=== PATIENT | female | born 1975 | race Two or more races ===

== ENCOUNTER 2022-06-16 20:39 | Inpatient (IN) | payer OTHER ==
[~2022-06-16] VITALS: Ht 160 cm; Wt 76.2 kg
[2022-06-16 22:30] LABS: Eosinophils # (auto) 0.2 10 ^3/uL (0-0.8); Mean Corpuscular Hemoglobin 13.7 pg (28.0-32.0); Mean Corpuscular Hgb Conc. 27.2 g/dL (32.0-36.0)
[2022-06-16 22:40] LABS: Basophils # (auto) 0 10 ^3/uL (0-0.2); Basophils % (auto) 0.4 % (0.0-2.0); Eosinophils % (auto) 2.1 % (0.0-7.0); Hematocrit 26.2 % (36.0-46.0); Hemoglobin 7.1 g/dL (12.2-16.2); Lymphocytes # (auto) 3.4 10 ^3/uL (0.4-5.4); Lymphocytes % (auto) 33.3 % (10.0-50.0); Mean Corpuscular Volume 50.3 fL (80.0-100.0); Monocytes # (auto) 0.6 10 ^3/uL (0-1.3); Monocytes % (auto) 6.3 % (0.0-12.0); Neutrophils # (auto) 5.9 10 ^3/uL (1.6-8.6); Neutrophils % (auto) 57.9 % (37.0-80.0); Red Cell Distribution Width 20.7 % (11.8-14.3); White Blood Cell 10.3 10^3/uL (4.4-10.8)
[2022-06-16 22:43] LABS: Albumin 3.5 g/dL (3.4-5.0); BUN/Creatinine Ratio 18.6; Calcium 8.9 mg/dL (8.5-10.1); Potassium 3.4 mmol/L (3.5-5.1)
[2022-06-16 22:46] LABS: Bilirubin, Total 0.3 mg/dL (0.2-1.0)
[2022-06-16] MEDS ORDERED: amLODIPine BESYLATE 5 MG TAB PO ONE (23:00)
[2022-06-16] MEDS ORDERED: POTASSIUM CHL 20 Meq TABLET PO ONE (23:30)
[2022-06-16] MEDS: MORPHINE SULFATE 4 MG/ML SYR/VIAL IV ONE (23:45)
[2022-06-16] MEDS: ONDANSETRON HCL 4 MG/2 ML VIAL IV ONE (23:45)
[2022-06-17] VITALS (8 sets, daily range): BP systolic 144–193; BP diastolic 81–98
[2022-06-17 01:07] LABS: Basophils # (auto) 0 10 ^3/uL (0-0.2); Eosinophils # (auto) 0.2 10 ^3/uL (0-0.8); Hematocrit 24.8 % (36.0-46.0); Monocytes # (auto) 0.8 10 ^3/uL (0-1.3); Monocytes % (auto) 7.5 % (0.0-12.0); Nucleated Red Blood Cells % 0.1 %; White Blood Cell 10.2 10^3/uL (4.4-10.8)
[2022-06-17 01:08] LABS: Basophils % (auto) 0.5 % (0.0-2.0); Eosinophils % (auto) 1.7 % (0.0-7.0); Hemoglobin 7.2 g/dL (12.2-16.2); Lymphocytes # (auto) 2.7 10 ^3/uL (0.4-5.4); Lymphocytes % (auto) 26.8 % (10.0-50.0); Mean Corpuscular Hemoglobin 14.7 pg (28.0-32.0); Mean Corpuscular Hgb Conc. 28.8 g/dL (32.0-36.0); Mean Corpuscular Volume 51.1 fL (80.0-100.0); Neutrophils # (auto) 6.5 10 ^3/uL (1.6-8.6); Neutrophils % (auto) 63.5 % (37.0-80.0); Red Blood Cells 4.86 10^6/uL (4.0-5.20)
[2022-06-17 01:09] LABS: Red Cell Distribution Width 20.4 % (11.8-14.3)
[2022-06-17] MEDS ORDERED: LABETALOL HCL 5 MG/ML 4ML SYRINGE IV ONE (03:15)
[2022-06-17] MEDS: ONDANSETRON HCL 4 MG/2 ML VIAL IV ONE (04:33)
[2022-06-17] MEDS: MORPHINE SULFATE 4 MG/ML SYR/VIAL IV ONE (04:33)
[2022-06-17] MEDS ORDERED: ONDANSETRON HCL 4 MG/2 ML VIAL IV PRN (06:15)
[2022-06-17] MEDS ORDERED: TEMAZEPAM 15 MG CAP PO PRN (06:15)
[2022-06-17] MEDS ORDERED: NITROGLYCERIN 0.4 MG SL TAB SL PRN (06:15)
[2022-06-17] MEDS ORDERED: MORPHINE SULFATE INJ 2 MG/ml SYRG IV PRN (06:15)
[2022-06-17] MEDS ORDERED: ACETAMINOPHEN 325 MG TAB PO PRN (06:15)
[2022-06-17 06:58] LABS: % Iron Saturation 2.3 % (15-50)
[2022-06-17 08:25] LABS: Urine Bacteria MANY /hpf (None Seen); Urine Blood Negative /uL (Negative); Urine Hyaline Cast FEW /lpf (0 - 2); Urine Mucus FEW (None Seen); Urine Specific Gravity 1.013 (1.001-1.035); Urine WBC 3 /hpf (0 - 5)
[2022-06-17 09:29] LABS: Hematocrit 26.9 % (36.0-46.0)
[2022-06-17] MEDS: ENOXAPARIN SOD 40 MG/0.4 ML SYRINGE SC SCH (11:32)
[2022-06-17] MEDS: ASPirin 81 mg TAB PO SCH (11:32)
[2022-06-17] MEDS: amLODIPine BESYLATE 5 MG TAB PO SCH (11:33)
[2022-06-17] MEDS: cloNIDine HCL 0.1 MG TAB PO PRN ×2 (11:35→23:01)
[2022-06-18 04:44] VITALS: BP 149/81
[2022-06-18 04:59] LABS: Eosinophils # (auto) 0.2 10 ^3/uL (0-0.8); Mean Corpuscular Volume 53.3 fL (80.0-100.0); Monocytes # (auto) 0.6 10 ^3/uL (0-1.3)
[2022-06-18 05:01] LABS: Basophils # (auto) 0.1 10 ^3/uL (0-0.2); Basophils % (auto) 0.9 % (0.0-2.0); Eosinophils % (auto) 2.4 % (0.0-7.0); Hematocrit 26.6 % (36.0-46.0); Hemoglobin 7.5 g/dL (12.2-16.2); Lymphocytes # (auto) 2.4 10 ^3/uL (0.4-5.4); Lymphocytes % (auto) 35.3 % (10.0-50.0); Mean Corpuscular Hgb Conc. 28.2 g/dL (32.0-36.0); Neutrophils # (auto) 3.7 10 ^3/uL (1.6-8.6); Neutrophils % (auto) 53.4 % (37.0-80.0); White Blood Cell 6.9 10^3/uL (4.4-10.8)
[2022-06-18 05:04] LABS: Red Cell Distribution Width 20.8 % (11.8-14.3)
[2022-06-18 05:20] LABS: BUN/Creatinine Ratio 17.1; Potassium 4.6 mmol/L (3.5-5.1)
[2022-06-18 08:00] VITALS: BP 155/89
[2022-06-18 09:21] VITALS: BP 155/89
[2022-06-18] MEDS ORDERED: AMLO-496 PO (10:00)
[2022-06-18] MEDS: amLODIPine BESYLATE 5 MG TAB PO SCH (10:39)
[2022-06-18] MEDS: ASPirin 81 mg TAB PO SCH (10:39)
[2022-06-18] MEDS: ENOXAPARIN SOD 40 MG/0.4 ML SYRINGE SC SCH (10:39)
[2022-06-18 12:50] VITALS: BP 155/90
[2022-06-18 12:51] VITALS: BP 155/90
== END 2022-06-18 15:12 | disposition home or self-care (01) | DRG 199 ==
LOC: ER 20:44 → TELE 06-17 06:17 → TELE-WESTW 06-17 21:39
PROVIDERS: ADMIT Nurse Practitioner; ATTEND Internal Medicine
PROC: 30233N1 Transfusion of Nonautologous Red Blood Cells into Peripheral Vein, Percutaneous Approach (ICD-10-PCS; principal; 2022-06-17)
DX: I16.1 Hypertensive emergency (principal); N17.9 Acute kidney failure, unspecified; D64.9 Anemia, unspecified; E87.6 Hypokalemia; I10 Essential (primary) hypertension; H53.8 Other visual disturbances; R51.9 Headache, unspecified; R77.8 Other specified abnormalities of plasma proteins; Z20.822 Contact with and (suspected) exposure to COVID-19
CPT/HCPCS: 36415; 70450; 70486; 71045; 80048; 80053; 81001; 83540; 83550; 83690; 83880; 84484; 85014; 85018; 85025; 86850; 86900; 86901; 86920; 87426; 93005; 93306; 96374; G0378; J2405; J3490

== ENCOUNTER → 2022-11-26 | Outpatient (CLI) | payer MEDICAID ==
[~2022-11-26] MED LIST: AMLO1TAB23 PO
[2022-11-26 08:09] LABS: Basophils # (auto) 0.1 10 ^3/uL (0-0.2); Eosinophils # (auto) 0.2 10 ^3/uL (0-0.8); Monocytes # (auto) 0.7 10 ^3/uL (0-1.3)
[2022-11-26 08:11] LABS: Basophils % (auto) 0.9 % (0.0-2.0); Eosinophils % (auto) 2.5 % (0.0-7.0); Hematocrit 35.5 % (36.0-46.0); Lymphocytes # (auto) 3.1 10 ^3/uL (0.4-5.4); Lymphocytes % (auto) 34.1 % (10.0-50.0); Mean Corpuscular Hemoglobin 19.7 pg (28.0-32.0); Mean Corpuscular Volume 63.5 fL (80.0-100.0); Neutrophils # (auto) 4.9 10 ^3/uL (1.6-8.6); Neutrophils % (auto) 54.5 % (37.0-80.0); Nucleated Red Blood Cells % 0.1 %; Red Blood Cells 5.59 10^6/uL (4.0-5.20)
[2022-11-26 08:18] LABS: Red Cell Distribution Width 21.6 % (11.8-14.3)
[2022-11-26 08:28] LABS: Urine Bacteria MOD /hpf (None Seen); Urine Blood Negative /uL (Negative); Urine Mucus FEW (None Seen); Urine Specific Gravity 1.014 (1.001-1.035); Urine WBC 1 /hpf (0 - 5)
[2022-11-26 08:53] LABS: % Iron Saturation 5.6 % (15-50)
[2022-11-26 08:54] LABS: Albumin 3.3 g/dL (3.4-5.0); Calcium 9.2 mg/dL (8.5-10.1); Potassium 3.8 mmol/L (3.5-5.1)
[2022-11-26 09:02] LABS: BUN/Creatinine Ratio 17.1 (10.0-20.0); Bilirubin, Total 0.3 mg/dL (0.2-1.0); Total Protein 8.1 g/dL (6.4-8.2)
== END | disposition home or self-care (01) ==
LOC: LAB 07:50
PROVIDERS: ATTEND Nurse Practitioner Family
DX: Z00.01 Encounter for general adult medical examination with abnormal findings (principal); I10 Essential (primary) hypertension; R73.9 Hyperglycemia, unspecified; D50.9 Iron deficiency anemia, unspecified
CPT/HCPCS: 36415; 80053; 80061; 81001; 82043; 82306; 83036; 83540; 83550; 84439; 84443; 85025

== ENCOUNTER 2023-05-31 17:50 | Emergency (ER) | payer MEDICAID ==
[~2023-05-31] VITALS: Ht 160 cm; Wt 78.0 kg
[2023-05-31 19:52] LABS: Basophils # (auto) 0 10 ^3/uL (0-0.2); Basophils % (auto) 0.4 % (0.0-2.0); Eosinophils # (auto) 0.2 10 ^3/uL (0-0.8); Eosinophils % (auto) 2.4 % (0.0-7.0); Hemoglobin 9.5 g/dL (12.2-16.2); Lymphocytes # (auto) 3.6 10 ^3/uL (0.4-5.4); Lymphocytes % (auto) 34.7 % (10.0-50.0); Mean Corpuscular Hemoglobin 18.6 pg (28.0-32.0); Mean Corpuscular Hgb Conc. 30.5 g/dL (32.0-36.0); Mean Corpuscular Volume 61.1 fL (80.0-100.0); Monocytes # (auto) 0.8 10 ^3/uL (0-1.3); Monocytes % (auto) 7.3 % (0.0-12.0); Neutrophils # (auto) 5.8 10 ^3/uL (1.6-8.6); Neutrophils % (auto) 55.2 % (37.0-80.0); Red Blood Cells 5.07 10^6/uL (4.0-5.20); Red Cell Distribution Width 18.4 % (11.8-14.3); White Blood Cell 10.5 10^3/uL (4.4-10.8)
[2023-05-31 20:19] LABS: Alanine Aminotransferase 18 U/L (7-40); Albumin 4.4 g/dL (3.2-4.8); Alkaline Phosphatase 73 U/L (46-116); Anion Gap 8 (5-15); Aspartate Aminotransferase 20 U/L (13-40); BUN/Creatinine Ratio 11.3 (10.0-20.0); Blood Urea Nitrogen 13 mg/dL (9-23); Calcium 9.4 mg/dL (8.5-10.1); Carbon Dioxide 21 mmol/L (20-30); Chloride 110 mmol/L (98-107); Glucose 129 mg/dL (74-106); Potassium 3.7 mmol/L (3.5-5.1); Sodium 139 mmol/L (136-145)
[2023-05-31 20:20] LABS: Bilirubin, Total 0.2 mg/dL (0.2-1.0); Total Protein 7.7 g/dL (5.7-8.2)
[2023-05-31 22:07] LABS: Urine Bacteria MANY /hpf (None Seen); Urine Blood Negative /uL (Negative); Urine Clarity HAZY (Clear); Urine Color Colorless (Yellow); Urine Hyaline Cast FEW /lpf (0 - 2); Urine Protein, UAD 2+ (Negative); Urine Specific Gravity 1.016 (1.001-1.035); Urine Urobilinogen Normal (Negative); Urine WBC 3 /hpf (0 - 5)
[2023-06-01] MEDS ORDERED: MECLIZINE HCL 25 MG TAB PO ONE (01:15)
[2023-06-01] MEDS ORDERED: IBUPROFEN 600 MG TAB PO ONE (01:15)
[2023-06-01] MEDS ORDERED: ONDANSETRON ODT 4 MG TAB PO ONE (01:15)
[2023-06-01] MEDS ORDERED: ZOFR4T PO (01:28)
[2023-06-01] MEDS ORDERED: FER325T PO (01:28)
[2023-06-01] MEDS ORDERED: MECL25CH85 PO (01:28)
[2023-06-01 02:34] VITALS: BP 163/92; PULSE 85; RESP 16; O2SAT 100
== END 2023-06-01 02:36 | disposition home or self-care (01) ==
LOC: ER 17:50
DX: D64.9 Anemia, unspecified (principal); R42 Dizziness and giddiness; R51.9 Headache, unspecified; I10 Essential (primary) hypertension
CPT/HCPCS: 36415; 70450; 80053; 81001; 81025; 82962; 84484; 85025; 93005; 99284; J8597; Q0162

== ENCOUNTER 2024-09-04 15:47 | Emergency (ER) | payer MEDICAID ==
[~2024-09-04] VITALS: Ht 160 cm; Wt 72.7 kg
[~2024-09-04 15:47] MED LIST changes: +MECL25CH85 PO; +ZOFR4T PO
--- NOTE | 2024-09-04 16:20 | ED.PDOC ---
History of Present Illness HPI Comments 49 year old female presents to the ED via EMS with a chief complaint of hypertension onset today (09/24/24). Per EMS, patient went to dentist office this morning for procedure, Bp was elevated and was sent home. Patient went to a walk in clinic due to DOUGLAS, BP was elevated, 0.2 mg Clonidine was given at 15:24, and 911 was called. Upon ED arrival, BP was 222/100. Patient states she is currently experiencing shortness of breath, headache, blurred vision and ear ringing. Patient did not take HTN medication today. PMHx HTN. Denies chest pain, nausea, vomiting, diarrhea, abdominal pain, fever, chills. No other symptoms or modifying factors present at this time. Chief Complaint: High Blood Pressure Time Seen by MD: 16:00 Primary Care Provider: NONE Reviewed Notes: Medications, Allergies Allergies: Coded Allergies: NO KNOWN ALLERGIES (Unverified , 06/16/22) Home Meds Active Scripts Ondansetron Odt 4MG Tab (ZOFRAN PO) 4 Mg Tb, 1 TAB PO Q8HPRN PRN, #20 TAB ODT TAB-DISSOLVE IN MOUTH, THEN SWALLOW as needed for nausea vomiting Prov:LOZADABRADLEYALDA Q PI/SENIOR RESEARCH ASSOCIATE 06/01/23 Meclizine HCl (Antivert) 25 Mg Chw, 1 TAB PO Q8HPRN PRN, #20 TAB.CHEW as needed fod dizziness Prov:LOZADA,NORALDA Q PI/SENIOR RESEARCH ASSOCIATE 06/01/23 Amlodipine Besylate (Amlodipine Besylate) 10 Mg Tab, 1 TAB PO DAILY, #30 TAB 5 Refills Prov:MAXI MORIN MD 06/18/22 Information Source: Patient, Emergency Med Personnel Mode of Arrival: EMS Severity: Moderate Timing: Hours Duration: Since onset Prehospital treatment: None Past Medical History PAST MEDICAL HISTORY: HTN Surgical History: Denies all surgeries LEGAL TRANSCRIPTIONIST History: No Pertinent LEGAL TRANSCRIPTIONIST History Family History Family History: Reviewed,noncontributory to illness, No family hx of Cancer, No family hx of DM, No family hx of Heart garrison, No family hx of HTN, No family hx ofKidney garrison, No family hx of Liver garrison, No family hx of Lung garrison, No family hx of Stroke Social History Smoker: Non-Smoker Alcohol: Denies ETOH Use Drugs: Denies Drug Use Lives In: Home Constitutional: denies: chills, diaphoresis, fatigue, fever, malaise, sweats, weakness, others EENTM: reports: blurred vision, ear ringing; denies: double vision, ear bleedi ng, ear discharge, ear drainage, ear pain, eye pain, eye redness, hearing loss, mouth pain, mouth swelling, nasal discharge, nose bleeding, nose congestion, nose pain, photophobia, tearing, throat pain, throat swelling, voice changes, others Respiratory: reports: shortness of breath; denies: cough, hemoptysis, orthopnea, SOB at rest, SOB with excertion, stridor, wheezing, others Cardiovascular: reports: others (hypertension); denies: chest pain, dizzy spells, diaphoresis, Dyspnea on exertion, edema, irregular heart beat, left arm pain, lightheadedness, palpitations, PND, syncope Gastrointestinal: denies: abdomen distended, abdominal pain, blood streaked bowels, constipated, diarrhea, dysphagia, difficulty swallowing, hematemesis, melena, nausea, poor appetite, poor fluid intake, rectal bleeding, rectal pain, vomiting, others Genitourinary: denies: abnormal vagina bleeding, burning, dyspareunia, dysuria, flank pain, frequency, hematuria, incontinence, pain, , vagina discharge, urgency, others Neurological: reports: headache; denies: dizziness, fainting, left sided numbness, left sided weakness, numbness, paresthesia, pre-existing deficit, right sided numbness, right sided weakness, seizure, speech problems, tingling, tremors, weakness, others Musculoskeletal: denies: back pain, gout, joint pain, joint swelling, muscle pain, muscle stiffness, neck pain, others Integumetry: denies: bruises, change in color, change in hair/nails, dryness, laceration, lesions, lumps, rash, wounds, others Allergic/Immunocompromised: denies: Difficulty Healing, Frequent Infections, Hives, Itching, others Hematologic/Lymphatic: denies: anemia, blood clots, easy bleeding, easy bruising, swollen glands, others Endocrine: denies: excessive hunger, excessive sweating, excessive thirst, excessive urination, flushing, intolerance to cold, intolerance to heat, unexplained weight gain, unexplained weight loss, others Psychiatric: denies: anxiety, bipolar disorder, depression, hopeless, panic disorder, schizophrenia, sleepless, suicidal, others All Other Systems: Reviewed and Negative Physical Exam General Appearance: No Apparent Distress, Normal HEENT: Normal ENT Inspection, Pharynx Normal, TMs Normal Neck: Full Range of Motion, Non-Tender, Normal, Normal Inspection Respiratory: Chest Non-Tender, Lungs Clear, No Accessory Muscle Use, No Respiratory Distress, Normal Breath Sounds Cardiovascular: No Edema, No JVD, No Murmur, No Gallop, Normal Peripheral Pulses, Regular Rate/Rhythm Breast Exam: Deferred Gastrointestinal: No Organomegaly, Non Tender, No Pulsatile Mass, Normal Bowel Sounds, Soft Genitalia: Deferred Pelvic: Deferred Rectal: Deferred Extremities: No calf tenderness, Normal capillary refill, Normal inspection, Normal range of motion, Non-tender, No pedal edema Musculoskeletal : Apperance: Normal Neurologic: Alert, racehorse trainer II-XII nml as Tested, No Motor Deficits, Normal Affect, Normal Mood, No Sensory Deficits Cerebellar Function: Normal Reflexes: Normal Skin: Dry, Normal Color, Warm Lymphatic: No Adenopathy Was a procedure done? Was a procedure done?: No Differential Dx Considerations may include: TIA, CVA, hypertensive crisis, uncontrolled blood pressure X-Ray, Labs, Meds, VS Vital Signs Date Time Temp Pulse Resp B/P (MAP) Pulse Ox O2 Delivery O2 Flow Rate FiO2 09/04/24 20:39 60 18 129/72 (91) 98 09/04/24 20:12 62 16 99 Room Air* 0 21 09/04/24 20:12 98.0 62 18 149/71 (97) 98 98.0 09/04/24 17:52 83 09/04/24 17:25 167/86 (113) 09/04/24 17:00 98.2 86 16 174/96 (122) 98 98.2 09/04/24 16:56 Room Air* 0 21 09/04/24 16:33 203/101 09/04/24 16:08 98.2 97 16 212/132 (158) 99 98.2 09/04/24 15:54 75 Lab Test 09/04/24 19:33 09/04/24 17:26 09/04/24 16:38 Range/Units Troponin I High Sensitivity 32 29 28 </=34 ng/L White Blood Count 9.1 4.4-10.8 10^3/uL Red Blood Count 5.02 4.0-5.20 10^6/uL Hemoglobin 11.7 L 12.2-16.2 g/dL Hematocrit 35.8 L 36.0-46.0 % Mean Corpuscular Volume 71.4 L 80.0-100.0 fL Mean Corpuscular Hemoglobin 23.2 L 28.0-32.0 pg Mean Corpuscular Hemoglobin Concent 32.6 32.0-36.0 g/dL Red Cell Distribution Width 16.1 H 11.8-14.3 % Platelet Count 320 140-450 10^3/uL Mean Platelet Volume 7.9 6.9-10.8 fL Neutrophils (%) (Auto) 56.9 37.0-80.0 % Lymphocytes (%) (Auto) 30.5 10.0-50.0 % Monocytes (%) (Auto) 9.8 0.0-12.0 % Eosinophils (%) (Auto) 1.7 0.0-7.0 % Basophils (%) (Auto) 1.1 0.0-2.0 % Neutrophils # (Auto) 5.2 1.6-8.6 10 ^3/uL Lymphocytes # (Auto) 2.8 0.4-5.4 10 ^3/uL Monocytes # (Auto) 0.9 0-1.3 10 ^3/uL Eosinophils # (Auto) 0.2 0-0.8 10 ^3/uL Basophils # (Auto) 0.1 0-0.2 10 ^3/uL Nucleated Red Blood Cells 0.0 % D-Dimer, Quantitative 0.25 0.0-0.49 mg/L FEU Sodium Level 142 136-145 mmol/L Potassium Level 3.6 3.5-5.1 mmol/L Chloride Level 109 H 98-107 mmol/L Carbon Dioxide Level 24 20-31 mmol/L Anion Gap 9 5-15 Blood Urea Nitrogen 19 9-23 mg/dL Creatinine 1.14 H 0.550-1.02 mg/dL Glomerular Filtration Rate Calc 60 >90 mL/min BUN/Creatinine Ratio 16.7 10.0-20.0 Serum Glucose 86 74-106 mg/dL Calcium Level 9.0 8.7-10.4 mg/dL Total Bilirubin 0.2 0.2-1.0 mg/dL Aspartate Amino Transferase (AST) 15 13-40 U/L Alanine Aminotransferase (ALT) 15 7-40 U/L Alkaline Phosphatase 70 46-116 U/L B-Type Natriuretic Peptide 66.66 0-100 pg/mL Total Protein 6.6 5.7-8.2 g/dL Albumin 3.8 3.2-4.8 g/dL Current Medications Medications (Trade) Dose Ordered Sig/[place] Route Start Time Stop Time Status Last Admin Hydralazine HCl (Apresoline Injection) 15 mg ONCE ONCE IV 09/04/24 16:30 09/04/24 16:31 DC 09/04/24 16:33 Ketorolac Tromethamine (Toradol Injection) 30 mg ONCE ONCE IV 09/04/24 17:15 09/04/24 17:16 DC 09/04/24 17:23 Methylprednisolone Sodium Succinate (Solu Medrol) 125 mg ONCE ONCE IV 09/04/24 17:45 09/04/24 17:47 DC 09/04/24 17:51 Sodium Chloride 1,000 ml @ 1,000 mls/hr Q1H ONCE IV 09/04/24 17:45 09/04/24 18:44 DC 09/04/24 17:51 [place] [id number] Ph: [phone] DIAGNOSTIC IMAGING Diagnostic Imaging Report : [id number] Signed PATIENT: MIGUEL HESTER ACCT: [id number] UNIT: [id number] : 1975 LOC: ER ROOM / BED: / AGE / SEX: 49 / F ADM STATUS: REG ER SERVICE 1616 ORDERING PHYSICIAN: REGAN NELSON PROCEDURE(s): CXR1 - CHEST XRAY 1 VIEW REASON: cp ORDER NUMBER(s): [id number], ACCESSION NUMBER(s): [id number] CHEST RADIOGRAPH Indication: cp Technique: Single frontal view of the chest was obtained Comparison: CHEST XRAY 1 VIEW on DOS: 06/16/22, CXR1 on DOS: 06/16/22 FINDINGS: Lines and Tubes: None Lungs: No focal consolidation. Pleura: No effusion. No pneumothorax. Cardiomediastinal contours: Unremarkable Bones: No acute osseous abnormality. IMPRESSION: 1. No acute cardiopulmonary disease. ATED BY: SAM DUNCAN Jr., DO DICTATED DATE/TIME: 09/04/241638 SIGNED BY: SAM DUNCNA Jr., SIGNED DATE/TIME: 09/04/241638 CC: X-Ray, Labs, Meds, VS Comment Imaging: X-rays and CT scans were reviewed and interpreted by this provider, imaging shows no fractures and no pathological disease. Pending radiology revie w. Laboratory: Labs reviewed and interpreted by this provider. No significant abnormalities noted. Patient has prior medical visits reviewed. Med reconciliation performed Vital signs reviewed Time of 1ST Reevaluation: 16:30 Reevaluation 1ST: Unchanged (After hydralazine and injection, patient was started having rhinitis and shortness a breath. Patient was given Solu-Medrol 125 which had good alleviating effect of the shortness a breath.) Patient Education/Counseling: Diagnosis, Treatment, Prognosis, Need For Follow Up (Continue taking blood pressure medications as prescribed. Follow up with the PCP tomorrow.) Family Education/Counseling: No Family Present Departure 1 Departure Time of Disposition: 20:55 Impression: Primary Impression: Hypertensive emergency Additional Impression: Headache Qualified Codes: G44.209 - Tension-type headache, unspecified, not intractable Disposition: 01 HOME / SELF CARE / HOMELESS Condition: Fair Discharged With: Self, Spouse Critical Care Note Critical Care Time?: No Stability Stability form required: No Heart Score Heart Score: Heart Score Response (Comments) Value History N/A 0 EKG N/A 0 Age N/A 0 Risk Factors N/A 0 Troponin N/A 0 Total 0 I personally scribed for REGAN NELSON SHARPLES MACHINE OPERATOR ([email or web address]) on 09/04/24 at 16:20. Electronically submitted by Funmilayo Hebert ([email or web address]). I personally scribed for REGAN NELSON SHARPLES MACHINE OPERATOR ([email or web address]) on 09/04/24 at 16:26. Electronically submitted by Funmilayo Hebert ([email or web address]). I personally scribed for REGAN NELSON SHARPLES MACHINE OPERATOR ([email or web address]) on 09/04/24 at 16:44. Electronically submitted by Funmilayo Hebert ([email or web address]). REGAN NELSON [facility] September 04, 2024 16:20
[2024-09-04] MEDS: hydrALAZINE HCL 20 MG/ML VL IV ONE (16:33)
--- NOTE | 2024-09-04 16:41 | DVH ---
CHEST RADIOGRAPH Indication: cp Technique: Single frontal view of the chest was obtained Comparison: CHEST XRAY 1 VIEW on DOS: 06/16/22, CXR1 on DOS: 06/16/22 FINDINGS: Lines and Tubes: None Lungs: No focal consolidation. Pleura: No effusion. No pneumothorax. Cardiomediastinal contours: Unremarkable Bones: No acute osseous abnormality. IMPRESSION: 1. No acute cardiopulmonary disease.
[2024-09-04 16:51] LABS: Basophils # (auto) 0.1 10 ^3/uL (0-0.2); Basophils % (auto) 1.1 % (0.0-2.0); Eosinophils # (auto) 0.2 10 ^3/uL (0-0.8); Eosinophils % (auto) 1.7 % (0.0-7.0); Hematocrit 35.8 % (36.0-46.0); Hemoglobin 11.7 g/dL (12.2-16.2); Lymphocytes # (auto) 2.8 10 ^3/uL (0.4-5.4); Lymphocytes % (auto) 30.5 % (10.0-50.0); Mean Corpuscular Hemoglobin 23.2 pg (28.0-32.0); Mean Corpuscular Hgb Conc. 32.6 g/dL (32.0-36.0); Mean Corpuscular Volume 71.4 fL (80.0-100.0); Monocytes # (auto) 0.9 10 ^3/uL (0-1.3); Monocytes % (auto) 9.8 % (0.0-12.0); Neutrophils # (auto) 5.2 10 ^3/uL (1.6-8.6); Neutrophils % (auto) 56.9 % (37.0-80.0); Platelet Count (auto) 320 10^3/uL (140-450); Red Blood Cells 5.02 10^6/uL (4.0-5.20); Red Cell Distribution Width 16.1 % (11.8-14.3); White Blood Cell 9.1 10^3/uL (4.4-10.8)
[2024-09-04 17:09] LABS: Alanine Aminotransferase 15 U/L (7-40); Albumin 3.8 g/dL (3.2-4.8); Alkaline Phosphatase 70 U/L (46-116); Anion Gap 9 (5-15); Aspartate Aminotransferase 15 U/L (13-40); BUN/Creatinine Ratio 16.7 (10.0-20.0); Blood Urea Nitrogen 19 mg/dL (9-23); Carbon Dioxide 24 mmol/L (20-31); Glucose 86 mg/dL (74-106); Potassium 3.6 mmol/L (3.5-5.1); Sodium 142 mmol/L (136-145); Total Protein 6.6 g/dL (5.7-8.2)
[2024-09-04 17:10] LABS: Bilirubin, Total 0.2 mg/dL (0.2-1.0); Chloride 109 mmol/L (98-107)
[2024-09-04] MEDS: KETOROLAC TROMETH 30 MG/ML 1ML VIAL IV ONE (17:23)
[2024-09-04] MEDS: methylPREDNISolone SOD SUCC 125 MG/2 ML VL IV ONE (17:51)
[2024-09-04] MEDS: SODIUM CHLORIDE 0.9% 1,000 ML IV ONE (17:51)
--- NOTE | 2024-09-04 18:53 | DVH ---
EXAM: CT HEAD WITHOUT CONTRAST INDICATION: figueroa TECHNIQUE: CT of the head without intravenous contrast. Radiation Dose Information: CT Dose: CTDI volume is 52.83 mGy. Dose-length product is 1058.32 mGy*cm The dose indicators for CT are the volume Computed Tomography (CT) Dose Index (CTDIvol) and the Dose Length Product (DLP), and are measured in units of mGy and mGy-cm, respectively. These indicators are not patient dose, but values generated from the CT scanner acquisition factors. The report includes radiation exposure data for exposures received during this examination. COMPARISON: CT HEAD WITHOUT CONTRAST on DOS: 05/31/23, HEAD WITHOUT CONTRAST on DOS: 06/16/22 FINDINGS: There is no evidence of acute intracranial hemorrhage, extra-axial collection, mass effect, midline s hift, herniation or hydrocephalus. Small 6-7 mm lacunar infarct right basal ganglion. The ventricles, sulci and cisterns are age appropriate. The allison-white differentiation is intact. Patchy periventricular and subcortical white matter hypoattenuation is nonspecific but may be related to small vessel ischemic disease. The visualized paranasal sinuses and mastoid air cells are clear. The surrounding soft tissues and osseous structures are unremarkable. IMPRESSION: 1. No acute intracranial hemorrhage 2. No paranasal sinus or mastoid disease. 3. Old lacunar infarct right basal ganglion. 4. No findings of territorial ischemia.
[2024-09-04 20:12] VITALS: PULSE 62; RESP 16; TEMP 98; O2SAT 99
[2024-09-04 20:39] VITALS: BP 129/72; PULSE 60; RESP 18; O2SAT 98
--- NOTE | 2024-09-07 20:44 | ECG ---
[facility] Test Date: 2024-09-04 Test Time: 15:54:48 Pat Name: MIGUEL HESTER Department: ED Room: Gender: F Finish Off Operator: GP : 1975 Requested By: REGAN NELSON Order Number: [id number] Reading MD: Rickey Teran Measurements Intervals [place] Rate: 75 P: -5 NM: 188 QRS: -50 QRSD: 101 T: 48 QT: 409 QTc: 457 Interpretive Statements Sinus rhythm Probable left atrial enlargement Left anterior fascicular block Left ventricular hypertrophy Anterior Q waves, possibly due to LVH ST elevation, consider inferior injury Electronically Signed On 09-07-2024 20:44:13 PDT by Rickey Teran Please click the below link to view image of tracing.
== END 2024-09-04 21:31 | disposition home or self-care (01) ==
LOC: ER 15:47 → EDBD 15:47 → ER 21:27
DX: I16.1 Hypertensive emergency (principal); R51.9 Headache, unspecified; I10 Essential (primary) hypertension
CPT/HCPCS: 36415; 70450; 71045; 80053; 83880; 84484; 85025; 85379; 93005; 96361; 96374; 96375; 99285; J0360; J1885; J2919; J7030